=== PATIENT | female | born 1950 ===

== ENCOUNTER 2019-10-04 06:59 | Day surgery (SDC) | payer OTHER | END 2019-10-04 12:35 | disposition home or self-care (01) | LOC: AMB-ENDOS 06:59 → EDBD 10:45 → AMB-ENDOS 12:35 | DX: K62.89 Other specified diseases of anus and rectum (principal); K57.30 Diverticulosis of large intestine without perforation or abscess without bleeding; K64.1 Second degree hemorrhoids ==

== ENCOUNTER 2022-12-09 12:47 | Emergency (ER) | payer OTHER ==
[~2022-12-09] VITALS: Ht 160 cm; Wt 54.4 kg
== END 2022-12-09 19:59 | disposition home or self-care (01) ==
LOC: ER 12:47
DX: R10.32 Left lower quadrant pain (principal); K59.00 Constipation, unspecified; E03.9 Hypothyroidism, unspecified; Z85.038 Personal history of other malignant neoplasm of large intestine